=== PATIENT | female | born 2005 | race Caucasian/White ===

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

== ENCOUNTER 2025-01-21 07:47 | Outpatient (CLI) | payer BC, SELFPAY ==
--- NOTE | ~2025-01-21 | MR_ITS ---
MRI of the brain Clinical History: Headache Technique: Axial and sagittal T1-weighted images were acquired. These were followed by axial T2-weigh mariela, diffusion weighted, gradient, and FLAIR images. Findings: There is no acute infarct, internal hemorrhage or mass lesion. Single small focus of FLAIR hyperintensity noted in the left anterior periventricular white matter. Ventricles and subarachnoid spaces are unremarkable. Orbits are unremarkable. Paranasal sinuses and m astoid air cells are clear. Major intracranial flow voids are intact. Sagittal midline structures are intact. IMPRESSION: Single small focus of FLAIR hyperintense signal in the left anterior periventricular white matter, no nspecific. Diagnostic considerations could include early focus of chronic microvascular ischemic suero ge versus possibly small focal demyelinating lesion, or sequela of migraine headache. Consider follow -up exam as indicated. Reviewed, dictated and finalized at location . IMPRESSION: Single small focus of FLAIR hyperintense signal in the left anterior periventri cular white matter, nonspecific. Diagnostic considerations could include early focus of chronic microvascular ischemic change versus possibly small focal demy elinating lesion, or sequela of migraine headache. Consider follow-up exam as i ndicated.
--- OUTSIDE RECORDS SUMMARY | 2025-01-21 07:53 | XMS_ITS | Clinical Summary ---
Author Organization [facility] Address Formerly [facility] [place] [address] Care Team Providers Care Slack Line Yarder Name Role Phone Vandana Bingham Primary Care Provider Allergies Active Allergy Reactions Criticality Noted Date Comments Diclofenac GI Bleed High 05/27/2023 Pt was told not to take any oral anti-inflammatories Medications loratadine (CLARITIN) 10 MG tablet Take 1 tablet (10 mg total) by mouth daily. Active Melatonin 10 MG Cap Take 10 mg by mouth nightly. Active etonogestrel (NEXPLANON) 68 MG SC implant 1 each (68 mg total) by Implant route once. 5 Active Multiple Vitamin (MULTIVITAMIN ADULT OR) Take 1 tablet by mouth daily. Active venlafaxine XR (EFFEXOR-XR) 75 MG 24 hr capsuleIndicati ons:Recurrent major depressive disorder, in partial remission TAKE 1 CAPSULE DAILY WITH A 37.5 MG CAPSULE 90 capsule 4 Active famotidine (PEPCID) 40 MG tabletIndicatio ns:GERD (gastroesophage al reflux disease) TAKE 1 TABLET(40 MG) BY MOUTH DAILY 90 tablet 5 Active venlafaxine XR (EFFEXOR-XR) 37.5 MG 24 hr capsuleIndicati ons:Recurrent major depressive disorder, in partial remission TAKE 1 CAPSULE BY MOUTH EVERY DAY WITH 75MG CAPSULE DAILY 90 capsule 2 5 Active methocarbamol (ROBAXIN) 500 MG tabletIndicatio ns:Upper back pain,Neck pain Take one tablet up to 4 times daily as needed 40 tablet 4 01/01/20 25 Discontinue d(Therapy completed) ondansetron (ZOFRAN) 4 MG tabletIndicatio ns:Nausea Take 1 tablet (4 mg total) by mouth every 8 (eight) hours as needed for Nausea. 20 tablet 4 01/01/20 25 Discontinue d(Therapy completed) cyclobenzaprine (FLEXERIL) 5 MG tabletIndicatio ns:Headache, chronic daily Take 1 tablet (5 mg total) by mouth 3 (three) times daily as needed for Muscle Spasms. 30 tablet 5 01/11/20 25 Active Problems Problem Noted Date Diagnosed Date Gastroesophageal reflux disease without esophagi tis 05/04/2024 Anxiety 05/27/2023 Depression 05/27/2023 History of atrial septal defect repair 3 Encounters Date Type Department Care Team Description 12/31/2024 11:00 AM CDT Office Visit [facility] Family & Internal Medicine [address] [address] Vandana Bingham H, BHUPENDRA Headache (Pt states the frequency, length and severity of her headaches are getting worse. These are not usually accompanied by n/v, but on Friday she was nauseous and had some diarrhea.) 12/31/2024 Travel from Last 3 Months Immunizations Name Administration Dates Next Due [id number] (Pediarix) 05/29/2005,03/28/2005,0 01/22/2005 DTaP-IPV (Kinrix) 01/23/2010,06/04/2006 Fluzone (IIV3, Trivalent, 0. 5 ML Prefilled Syringe) 07/22/2024 Fluzone 6 Months+ Quad (0.5 mL Prefilled Syringe) 08/15/2023 HPV GARDASIL 9-VALENT 11/16/2018,05/12/2018 Hepatitis A (Generic) 07/07/2007,11/21/2006 Hepatitis B Pediatric 2004 Hepatitis B(Engerix B Adult) 04/12/2024,12/22/19 24,11/10/2023 Hib (Generic) 06/04/2006, 5,03/28/2005,01/11 Influenza (FluMist) 07/05/2014,08/21/2013,2011 Influenza (Generic) 08/11/2017, 6,07/22/2007,09/13,09/03/2005 Influenza Adult (Generic) 08/04/2022,,08/03/2020,07/14,08/07/2018,08/23/2015 MENINGOCOCCAL A C Y&W-135 oligosaccharide (MENVEO) 05/08/2016 MMR (MMRII) 01/23/2010,02/19/2006 PFIZER COVID-19 (ORIGINAL FO RMULATION, PURPLE CAP) mRNA, LNP-S, PF, 30 MCG/0.3 ML DOSE 10/15/2021,02/14/2021,01/24/2021 Pneumococcal (Prevnar 7) 02/19/2006,05/13,03/28/2005,01/11 Tdap (Generic) 05/08/2016 Varicella (Varivax) 01/23/2010,11/20/2005 Family History Medical History Relation Comments Anxiety Father Depression Father Diabetes Father Hyperlipidemia Father Mental Health Father bipolar depression Father renal calculi Father COPD Maternal Grandfather Cancer Maternal Grandfather Lung and sk in cancer Diabetes Maternal Grandfather Heart Disease Maternal Grandfather Arthritis Maternal Grandmother Breast Cancer Maternal Grandmother Cancer Maternal Grandmother Breast canc er Diabetes Maternal Grandmother Deep vein thrombosis Mother Depression Mother Hypertension Mother Migraines Mother Miscarriages / Stillbirths Mother Pulmonary embolism Mother gallbladder removed Mother Diabetes Paternal Grandfather Diabetes Paternal Grandmother No Known Problems Sister 1 No Known Problems Sister 2 Relation Status Comments Father Alive Maternal Grandfather Alive Maternal Grandmother Alive Mother Alive Paternal Grandfather Alive Paternal Grandmother Alive Sister 1 Alive Sister 2 Alive Social History Tobacco Use Types Packs/Day Years Used Date Smoking Tobacco: Never Smokeless Tobacco: Never Tobacco Cessation:Counseling Given: No Alcohol Use Standard Drinks/Week Comments Not Currently 0 (1 standard drink = 0.6 oz pure alcohol) Drank mixed drinks in [place] in summer PHQ-2 Answer Date Recorded Patient Health Questionnaire-2 Score 0 05/04/2024 Comments No Sex and Gender Information Value Date Recorded Sex Assigned at Female 07/30/2023 9:45 AM CDT Legal Sex Female 1:26 PM CDT Gender Identity Female 07/30/2023 9:45 AM CDT Sexual Orientation Straight 07/30/2023 9: 45 AM CDT Last Filed Vital Signs Vital Sign Reading Time Taken Comments Blood Pressure 132/72 12/31/2024 11:02 AM CDT Pulse 91 12/31/2024 11:02 AM CDT Temperature 36.3 C (97.4 F) 12/31/2024 11:02 AM CDT Respiratory Rate 16 12/31/2024 11:0 2 AM CDT Oxygen Saturation 98% 12/31/2024 11: 02 AM CDT Inhaled Oxygen Concentration - - Weight 103.6 kg (228 lb 4.8 oz) 025 11:02 AM CDT Height 170.2 cm (5' 7 ) 12/31/2024 11:0 2 AM CDT Body Mass Index 35.76 12/31/2024 11:02 AM CDT Plan of Treatment Health Maintenance Due Date Last Done Comments Meningococcal B Vaccine (1 of 2 - Standard) 2020 Hepatitis C 2022 COVID-19 Vaccine ( season) 2024 10/15/2021, 02/14/2021, 01/24/2021 Annual Physical 07/24/2024 07/24/2023 PHQ-2 (Physician [place]) 10/13/2024 05/04/2024 DTaP, Tdap and Td Vaccines (7 - Td or Tdap) 05/08/2026 05/08/2016, 01/23/2010, 06/04/2006, Additional history exists Pneumococcal Vaccine: Pediatrics (0 to 5 Years) and At-Risk Patients (6 to 64 Years) Aged Out 02/19/2006, 05/29/2005, 03/28/2005, Additional history exists No longer eligible based on patient's age to complete this topic Meningococcal Vaccine Aged Out 05/08/2016 No reji lolly eligible based on patient's age to complete this topic HPV Vaccines Completed 11/16/2018, 05/12/2018 Hepatitis B Vaccines Completed 04/12/2024, 12/22/2023, 11/10/2023, Additional history exists RSV Immunizations Under 20 Months Aged Out No longer eligible based on patient's age to complete this topic Insurance [facility] Care Teams Slack Line Yarder Relationship Specialty Start Date End Date Vandana Bingham APNP [address] [place] [address] PCP - General NURSE PRACTITIONER 05/27/23
--- OUTSIDE RECORDS SUMMARY | 2025-01-21 07:53 | XMS_ITS | Encounter Summary ---
Author Organization [facility] Address [address] [place] [id number] Care Team Providers Care Drawer In Jacquard Loom Name Role Phone Vandana Bingham Primary Care Provider Reason for Visit * Reason Onset Date Comments Follow Up Call 03/16/2024 Encounter Details Date Type Department Care Team (Late st Contact Info) Description 03/16/2024 Amazing Hiringt Message Enc [facility] Family & Internal Medicine [facility] [address] [place] [address] Vandana Bingham APNP [address] [place] [address] Follow up after my office visit on Fridayfebruary 23 Social History Tobacco Use Types Packs/Day Years Used Date Smoking Tobacco: Never Smokeless Tobacco: Never Alcohol Use Standard Drinks/Week Comments Never 0 (1 standard drink = 0.6 oz pur e alcohol) PHQ-2 Answer Date Recorded Patient Health Questionnaire-2 Score 0 05/27/2023 Comments No Sex and Gender Information Value Date Recorded Sex Assigned at Female 07/30/2023 9:45 AM CDT Legal Sex Female 1:26 PM CDT Gender Identity Female 07/30/2023 9:45 AM CDT Sexual Orientation Straight 07/30/2023 9: 45 AM CDT documented as of this encounter Plan of Treatment Not on file documented as of this encounter Visit Diagnoses Not on filedocumented in this encounter Additional Health Concerns Assessment Noted Time PHQ-9 Depression Total Score: 3 05/27/20 10:28 AM CDT documented as of this encounter Care Teams Drawer In Jacquard Loom Relationship Specialty Start Date End Date Vandana Bingham APNP [address] [place] [id number] PCP - General NURSE PRACTITIONER 05/27/23 documented as of this encounter
--- OUTSIDE RECORDS SUMMARY | 2025-01-21 07:53 | XMS_ITS | Clinical Summary ---
Author Organization [facility] Address [address] [place] [address] Care Team Providers Care Care Center Manager Name Role Phone Vandana Bingham APRN-MEDICAL INSURANCE CLAIMS SPECIALIST Primary Care Provider Source Comments [facility],non-owned Affiliates and Associated Physician Practices is amultiple site organization consisting of ambulatory clinics and hospital sitesin [place], [place], [place] and [place]. This disclosure is being madepursuant to the Care Everywhere program and may not contain all information available regarding this patient. Last updated 18.[facility] Allergies Active Allergy Reactions Criticality Noted Date Comments Diclofenac Epolamine GI Discomfort High 05/27/2023 Pt was told not to take any oral anti-inflammatories Medications * Be aware that medications may not be up to date on this document. Alwaysverify current medications with the patient. Medication Sig Dispensed Refills Start Date End Date Status loratadine (CLARITIN) 10 MG tablet Take 1 (one) tablet by mouth once daily Active famotidine (PEPCID) 40 MG tabletIndications:Abd ominal pain, generalized Take 1 tablet by mouth 2 times daily 60 tablet 1 09/21/2020 Active FLUoxetine (PROZAC) 10 MG capsule Take 10 mg by mouth once daily Active escitalopram (LEXAPRO) 5 MG tablet Take 5 mg by mouth once daily Active MELATONIN PO Active Drospirenone (SLYND PO) Active venlafaxine XR 24hr (Effexor XR) 37.5 MG capsule Take 1 (one) capsule by mouth every 24 hours 07/24/2023 Active venlafaxine XR 24hr (Effexor XR) 75 MG capsule Take 1 (one) capsule by mouth once daily 07/24/2023 Active multivitamin daily tablet Take 1 (one) tablet by mouth daily with food Active Active Problems Problem Noted Date Diagnosed Date ASD (atrial septal defect) 02/11/2012 Encounters Date Type Department Care Team Description 10/24/2024 Refill [facility] Professional [place] [address] Rommle ePrez MD Refill Request from Last 3 Months Family History Medical History Relation Name Comments Depression Father Diabetes - Type 2 Father Hypertension Mother Migraine Mother Other - Gastrointestinal Mother Arrhythmia Neg Hx CVA<55(male) Neg Hx CVA<65(female) Neg Hx Cardiomyopathy Neg Hx Congenital Heart defect Neg Hx Heart Surgery Neg Hx Long QT Syndrome Neg Hx WA<55(male) Neg Hx WA<65(female) Neg Hx Marfan Syndrome Neg Hx Pacemaker Neg Hx Sudd. <30 Neg Hx Relation Name Status Comments Father Alive Mother Other IBS Social History Tobacco Use Types Packs/Day Years Used Date Smoking Tobacco: Never Passive Smoke Exposure: Yes Smokeless Tobacco: Never Tobacco Cessation:Counseling Given: Not Answered Alcohol Use Standard Drinks/Week Comments Never 0 (1 standard drink = 0.6 oz pur e alcohol) AUDIT-C Answer Date Recorded Frequency of Alcohol Consumption Never 08/27/2019 Average Number of Drinks Not on file 019 Frequency of Binge Drinking Not on file 08/13 Sex and Gender Information Value Date Recorded Sex Assigned at Female 12/04/2023 2:19 PM ASSISTANT FOOD SERVICE MANAGER Gender Identity Female 12/04/2023 2:19 PM ASSISTANT FOOD SERVICE MANAGER Sexual Orientation Straight 12/04/2023 2: 19 PM ASSISTANT FOOD SERVICE MANAGER Last Filed Vital Signs Vital Sign Reading Time Taken Comments Blood Pressure 130/84 09/22/2023 3:24 PM ASSISTANT FOOD SERVICE MANAGER Pulse 94 09/22/2023 3:13 PM ASSISTANT FOOD SERVICE MANAGER Temperature 36.8 C (98.2 F) 09/22/2023 3:13 PM ASSISTANT FOOD SERVICE MANAGER Respiratory Rate 19 09/22/2023 3:13 PM ASSISTANT FOOD SERVICE MANAGER Oxygen Saturation 98% 09/22/2023 3:13 PM ASSISTANT FOOD SERVICE MANAGER Inhaled Oxygen Concentration - - Weight 101.7 kg (224 lb 3.2 oz) 09/22/2023 3:13 PM ASSISTANT FOOD SERVICE MANAGER Height 172 cm (5' 7.72 ) 09/22/2023 3:13 PM ASSISTANT FOOD SERVICE MANAGER Body Mass Index 34.38 09/22/2023 3:13 PM ASSISTANT FOOD SERVICE MANAGER Plan of Treatment Health Maintenance Due Date Last Done Comments HIV SCREENING 2019 HPV VACCINE (1 - 3-dose series) 2019 CHLAMYDIA/GONORRHEA SCREENING 2020 MENINGOCOCCAL (Group B) VACCINE SHARED DECISION-MAKING (1 of 2 - Standard) 2020 HEPATITIS C SCREENING 11/15/2022 DTAP/TDAP/TD VACCINES (1 - Tdap) 2023 HEPATITIS B VACCINE (1 of 3 - 19+ 3-dose series) 2023 COVID-19 VACCINE (4 - season) 2024 10/15/2021, 02/14/2021, 01/24/2021 DEPRESSION SCREENING 10/13/2024 INFLUENZA VACCINE (Season Ended) 2025 08/15/2023, 08/04/2022, 07/29/2021, Additional history exists ZOSTER VACCINE (1 of 2) 2054 HIB VACCINE Aged Out No longer eligi ble based on patient's age to complete this topic MENINGOCOCCAL GROUPS A/C/Y/W VACCINE Aged Out No longer eligible based on patient's age to complete this topic PNEUMOCOCCAL VACCINE Aged Out No long er eligible based on patient's age to complete this topic Care Teams Care Center Manager Relationship Specialty Start Date End Date Vandana Bingham, [employer]-MEDICAL INSURANCE CLAIMS SPECIALIST [facility] [place] [address] PCP - General Nurse Practitioner 08/25/23
--- OUTSIDE RECORDS SUMMARY | 2025-01-21 07:53 | XMS_ITS | Encounter Summary ---
Author Organization [facility] Address [address] [place] [address] Care Team Providers Care Director Biology Name Role Phone Rommel Perez MD Primary Care Provider [phone] Vandana Bingham APRN-FIRE PATROLLER Primary Care Provider Reason for Visit * Reason Onset Date Comments Pain Abdominal 09/18/2020 Encounter Details Date Type Department Care Team (Late st Contact Info) Description 09/18/2020 Telephone [facility] - GI [address] [place] [address] Janet Baer MD [address] [place] [address] Pain Abdominal Social History Tobacco Use Types Packs/Day Years Used Date Smoking Tobacco: Passive Smo ke Exposure - Never Smoker Smokeless Tobacco: Never Alcohol Use Standard Drinks/Week Comments Never 0 (1 standard drink = 0.6 oz pur e alcohol) AUDIT-C Answer Date Recorded Frequency of Alcohol Consumption Never 08/27/2019 Average Number of Drinks Not on file 019 Frequency of Binge Drinking Not on file 08/13 Sex and Gender Information Value Date Recorded Sex Assigned at Female 12/04/2023 2:19 PM INSULATION HOSEMAN Gender Identity Female 12/04/2023 2:19 PM [employer]ULATION HOSEMAN Sexual Orientation Straight 12/04/2023 2: 19 PM INSULATION HOSEMAN COVID-19 Exposure Response Date Recorded In the last month, have you been in contact with someone who was confirmed or suspected to have Coronavirus / COVID-19? No / Unsure 09/20/2020 3:45 PM INSULATION HOSEMAN documented as of this encounter Miscellaneous Notes * Telephone Encounter - Portia Ibarra RN - 09/21/2020 8:15 AM CST Left detailed message on dad's identified voicemail. If Pepcid is helping and noticed and change, ok to take BID. Also reviewed that it is ok to take PRN if it is not making a big difference in symptoms. Will forward prescription to Dr. Baer for signature. LATION HOSEMAN * Telephone Encounter - Janet Baer MD - 09/20/2020 4:29 PM CST Can change to prn if not helping LATION HOSEMAN * Telephone Encounter - Portia Ibarra RN - 09/20/2020 3:51 PM CST Spoke to dad, asking if they should continue the Pepcid BID. Will forward to Dr. Baer. LATION HOSEMAN * Telephone Encounter - Sharlene Isaac - 09/20/2020 2:55 PM CST Dad left a message requesting to schedule an appt for this pt at [phone]. Routing to GI schedulers to schedule first available with Dr. Baer, VINCENZO, or Fellow. LATION HOSEMAN * Telephone Encounter - Carin Merida RN - 09/20/2020 10:30 AM INSULATION HOSEMAN Spoke to Gabriela's Dad (Jeff) - discussed Dr. Baer's message/recommendation. Dad expressed understanding. Will ask GI scheduling to assist with apt (first available with Dr. Baer, MARKING CLERK, or Fellow) Dad is at work today and states best number to reach him is [phone] LATION HOSEMAN * Telephone Encounter - Bouchra Ward - 09/20/2020 10:20 AM INSULATION HOSEMAN Dad left a message stating that he's returning a call. LATION HOSEMAN * Telephone Encounter - Flora Back RN - 09/20/2020 8:25 AM INSULATION HOSEMAN No answer @ number left by jen, LM asking him to call us. LATION HOSEMAN * Telephone Encounter - Janet Baer MD - 09/19/2020 4:38 PM CST Yes there are other things we can do but let's see her back I n clinic (can be me, MARKING CLERK, fellow) and echeck her weight We may start amitryptiline (she has had normal Holter, normal QT interval) LATION HOSEMAN * Telephone Encounter - Chantal Ruggiero RN - 09/19/2020 8:11 AM CST Spoke with dad. He states Gabriela is having abdominal pain daily with meals. She is currently on Pepcid BID. (She ran out of the rx yesterday-will need to refill). Dad states the Levsin did not seemto help. He is wondering if there are any other medications she can try? Dad states he thinks most of her abdominal pain is related to school stress and anxiety. Gabriela does see a therapist every 2-3 months which he feels like helps. She did establish care with an OBGYN, everything checked out okthere. I reviewed guided imagery with dad and he will discuss with Gabriela as an option. Stooling normal. Will send summary to Dr. Baer to review and call dad back with her suggestions. LATION HOSEMAN * Telephone Encounter - Sharlene Isaac - 09/18/2020 3:49 PM CST Dad left a message requesting a call back at [phone]. He says that this pt was prescribed Pepcid after her appt in July, and after all of her testing came back normal the dose was increased to BID. Dad is requesting a call back so he can update us on how this pt has been doing. He is requesting that we call him and not his ex-, as he is the one handling this pt. LATION HOSEMAN documented in this encounter Plan of Treatment Not on file documented as of this encounter Visit Diagnoses Diagnosis Abdominal pain, generalized documented in this encounter Care Teams Director Biology Relationship Specialty Start Date End Date [place] [id number] PCP - General 11/21/09 08/24/23 Vandana Bingham APRN-FIRE PATROLLER [address] [place] [id number] PCP - General Nurse Practitioner 08/25/23 documented as of this encounter
== END 2025-01-21 07:48 | disposition home or self-care (01) ==
PROVIDERS: PCP Pediatrics; Visit Provider Registered Nurse
DX: R90.82 White matter disease, unspecified (principal); R51.9 Headache, unspecified
CPT/HCPCS: 70551